=== PATIENT | female | born 1985 | race African-American/Black ===

== ENCOUNTER 2025-07-19 01:45 | Inpatient (IN) | payer OTHER ==
[~2025-07-19] VITALS: Ht 165.1 cm; Wt 94.8 kg
[2025-07-19] MEDS ORDERED: ONDANSETRON HCL/PF 4 MG/2 ML VIAL ONE (02:25)
[2025-07-19] MEDS ORDERED: MORPHINE SULFATE INJ 2 MG/ML DISP.SYRIN ONE ×2 (02:25→03:08)
[2025-07-19 02:37] LABS: PLATELET COUNT (AUTO) 329 K/uL (150-450); RED BLOOD CELL COUNT(AUTO) 4.19 MIL/uL (4.0-5.2); RED CELL DISTRIBUTION WIDTH 17.6 % (11.5-15.0); WHITE BLOOD COUNT (AUTO) 15.2 K/uL (4.3-11.0)
[2025-07-19] MEDS: IV NS 0.9% 1,000 ML BAG IV ONE ×2 (02:44→03:48)
[2025-07-19] MEDS: MORPHINE SULFATE INJ 2 MG/ML DISP.SYRIN IV ONE ×2 (02:44→03:12)
[2025-07-19] MEDS: ONDANSETRON HCL/PF 4 MG/2 ML VIAL IVP ONE (02:44)
[2025-07-19 02:45] LABS: CALCIUM, SERUM 9.0 mg/dL (8.5-10.1); CREATININE 0.7 mg/dL (0.6-1.3); SODIUM SERUM 145 mmol/L (136-145); UREA NITROGEN, BLOOD 14 mg/dL (7-18)
[2025-07-19 02:51] LABS: ASPARTATE AMINOTRANSFERASE 129 U/L (15-37); INR 1.04 (0.91-1.10); TOTAL PROTEIN, SERUM 6.9 g/dL (6.4-8.2)
[2025-07-19 03:07] LABS: PREGNANCY TEST URINE QUAL NEGATIVE (NEGATIVE)
[2025-07-19 03:09] LABS: APPEARANCE,URINE SLIGHTLY CLOUDY (CLEAR); BLOOD, URINE 2+ Ery/uL (NEGATIVE); LEUKOCYTE ESTERASE ,URINE TRACE (NEGATIVE); NITRITE, URINE NEGATIVE (NEGATIVE); UGLUCOSE NEGATIVE (NEGATIVE)
[2025-07-19 03:21] LABS: ADD URINE CULTURE YES; SQUAMOUS EPITHELIAL CELL,UR Many /HPF (None Seen)
[2025-07-19] MEDS ORDERED: KETOROLAC TROMETHAMINE INJ 30 MG/ML VIAL ONE (03:30)
[2025-07-19] MEDS: KETOROLAC TROMETHAMINE INJ 30 MG/ML VIAL IV ONE (03:31)
[2025-07-19] MEDS ORDERED: PIPERACI/TAZO 3.375GM/D5W 50ML PB IV ONE (03:32)
[2025-07-19] MEDS: PIPERACILLIN /TAZOBACTAM 3.375 G in IV D5W 50 ML IV ONE (03:48)
[2025-07-19] MEDS ORDERED: Z GUARD REMEDY 4 OZ OINT TP PRN (04:00)
[2025-07-19] MEDS ORDERED: FLUT1DIS IH (08:13)
[2025-07-19] MEDS ORDERED: ALBU8.5H8 IH (08:13)
[2025-07-19 08:50] VITALS: BP 127/80; TEMP 98.6; O2SAT 99
[2025-07-19] MEDS: PIPERACILLIN /TAZOBACTAM 3.375 G in IV D5W 100 ML IV SCH (10:00)
[2025-07-19] MEDS: ENOXAPARIN SODIUM 40 MG/0.4 ML DISP.SYRIN SQ SCH (10:14)
[2025-07-19] MEDS: PANTOPRAZOLE 40 MG VIAL IV SCH (10:14)
[2025-07-19] MEDS: IV D5/ 0.9% NACL 1,000 ML IV PRN (10:15)
[2025-07-19] MEDS: ONDANSETRON HCL/PF 4 MG/2 ML VIAL IVP PRN (10:23)
[2025-07-19] MEDS: MORPHINE SULFATE INJ 2 MG/ML DISP.SYRIN IV PRN (10:24)
[2025-07-19] MEDS ORDERED: PIPERACILLIN /TAZOBACTAM 3.375 G in IV D5W 50 ML IV SCH (13:00)
[2025-07-19 16:00] VITALS: BP 122/76; TEMP 98.3; O2SAT 95
[2025-07-19] MEDS ORDERED: PIPERACILLIN /TAZOBACTAM 3.375 G in IV D5W 100 ML IV SCH (16:30)
[2025-07-19] MEDS: LEVOFLOXACIN 750 MG /D5W 150ML 750 MG in PREMIX 1 EA IV SCH (17:15)
[2025-07-19] MEDS: METRONIDAZOLE 500MG/ NS 100ML 500 MG in PREMIX 1 EA IV SCH (18:21)
[2025-07-19 20:00] VITALS: BP 119/66; TEMP 98.4; O2SAT 96
[2025-07-19 21:30] VITALS: O2SAT 95
[2025-07-19 21:40] VITALS: O2SAT 99
[2025-07-19] MEDS: IPRATROPIUM NEB FS 0.5 MG/2.5 ML AMPUL.NEB NEB PRN (21:54)
[2025-07-19] MEDS: ALBUTEROL FS 2.5 MG/3 ML VIAL.NEB NEB PRN (21:54)
[2025-07-20] VITALS (10 sets, daily range): BP systolic 109–118; BP diastolic 69–72; TEMP 98.4–100; O2SAT 95–100
[2025-07-20 07:29] LABS: PLATELET COUNT (AUTO) 362 K/uL (150-450); RED BLOOD CELL COUNT(AUTO) 3.49 MIL/uL (4.0-5.2); RED CELL DISTRIBUTION WIDTH 17.4 % (11.5-15.0); WHITE BLOOD COUNT (AUTO) 10.4 K/uL (4.3-11.0)
[2025-07-20 08:24] LABS: ASPARTATE AMINOTRANSFERASE 35.0 U/L (15-37); CALCIUM, SERUM 7.4 mg/dL (8.5-10.1); CREATININE 0.7 mg/dL (0.6-1.3); PHOSPHORUS 3.8 mg/dL (2.5-4.9); SODIUM SERUM 146.0 mmol/L (136-145); TOTAL PROTEIN, SERUM 5.5 g/dL (6.4-8.2); UREA NITROGEN, BLOOD 10.0 mg/dL (7-18)
[2025-07-20] MEDS: Magnesium 1GM/D5W 100ML PREMIX 100 ML IV SCH (12:14)
[2025-07-20] MEDS ORDERED: FENTANYL PF 250MCG/5ML AMPUL ONE (13:56)
[2025-07-20] MEDS ORDERED: SUCCINYLCHOLINE CHLORIDE 20 MG/ML VIAL ONE (13:57)
[2025-07-20] MEDS ORDERED: ROCURONIUM BROMIDE 50 MG/5 ML ONE (13:57)
[2025-07-20] MEDS ORDERED: ALBUTEROL SULFATE 8 GM HFA.AER.AD ONE (14:08)
[2025-07-20] MEDS ORDERED: ALBUTEROL SULFATE 8 GM HFA.AER.AD IH ONE (14:14)
[2025-07-20] MEDS ORDERED: ALBUTEROL SULFATE 8 GM HFA.AER.AD IH PRN (15:30)
[2025-07-20] MEDS ORDERED: ANESTHESIA TRAY IN PYXIS 1 EA TRAY MC ONE (15:50)
[2025-07-20] MEDS: ZOLPIDEM TARTRATE 5 MG TABLET PO PRN (22:44)
[2025-07-20] MEDS: GUAIFENESIN/D-METHORPHAN HB 5 ML UDC PO PRN (23:03)
[2025-07-21] VITALS (10 sets, daily range): BP systolic 118–139; BP diastolic 65–87; TEMP 98.5–100.2; O2SAT 97–100
[2025-07-21 07:41] LABS: CALCIUM, SERUM 7.6 mg/dL (8.5-10.1); CREATININE 0.8 mg/dL (0.6-1.3); PHOSPHORUS 3.8 mg/dL (2.5-4.9); SODIUM SERUM 140.0 mmol/L (136-145); UREA NITROGEN, BLOOD 7.0 mg/dL (7-18)
[2025-07-21 07:43] LABS: PLATELET COUNT (AUTO) 360 K/uL (150-450); RED BLOOD CELL COUNT(AUTO) 3.56 MIL/uL (4.0-5.2); RED CELL DISTRIBUTION WIDTH 17.2 % (11.5-15.0); WHITE BLOOD COUNT (AUTO) 11.1 K/uL (4.3-11.0)
[2025-07-21 08:02] LABS: ASPARTATE AMINOTRANSFERASE 26.0 U/L (15-37); TOTAL PROTEIN, SERUM 5.9 g/dL (6.4-8.2)
[2025-07-21 10:21] LABS: ABG BASE EXCESS -2.1 mmol/L (-2.0-3.0); ABG OXYGEN SATURATION 95.8 % (94.0-98.0); ABG PCO2 38.8 mmHg (32.0-45.0); ABG PH 7.385 (7.350-7.450); ABG PO2 86.3 mmHg (83.0-108.0); ABG TOTAL HEMOGLOBIN 10.0 G/dL (12.0-16.0); FLOW, BLOOD GAS 2.00 L/min (0.00-30.00); FRACTIONATED INSPIRED OXYGEN 28.0 %; SITE, ABG RIGHT BRACHIAL
[2025-07-21] MEDS: HYDROMORPHONE 1 MG/1 ML DISP.SYRIN IV PRN (13:25)
[2025-07-21 19:05] LABS: ABG BASE EXCESS -1.2 mmol/L (-2.0-3.0); ABG OXYGEN SATURATION 99.3 % (94.0-98.0); ABG PCO2 40.4 mmHg (32.0-45.0); ABG PH 7.386 (7.350-7.450); ABG PO2 259.7 mmHg (83.0-108.0); ABG TOTAL HEMOGLOBIN 10.4 G/dL (12.0-16.0); FLOW, BLOOD GAS 10.00 L/min (0.00-30.00); FRACTIONATED INSPIRED OXYGEN 60.0 %; SITE, ABG LEFT RADIAL
[2025-07-21] MEDS: IV LR 1000 ML 1,000 ML BAG IV ONE (20:39)
[2025-07-22] VITALS (14 sets, daily range): BP systolic 117–125; BP diastolic 69–80; TEMP 98.2–99.2; O2SAT 95–100
[2025-07-22 08:41] LABS: PLATELET COUNT (AUTO) 358 K/uL (150-450); RED BLOOD CELL COUNT(AUTO) 3.39 MIL/uL (4.0-5.2); RED CELL DISTRIBUTION WIDTH 16.8 % (11.5-15.0); WHITE BLOOD COUNT (AUTO) 11.7 K/uL (4.3-11.0)
[2025-07-22 11:14] LABS: ASPARTATE AMINOTRANSFERASE 25.0 U/L (15-37); CALCIUM, SERUM 7.6 mg/dL (8.5-10.1); CREATININE 0.6 mg/dL (0.6-1.3); PHOSPHORUS 3.0 mg/dL (2.5-4.9); SODIUM SERUM 139.0 mmol/L (136-145); TOTAL PROTEIN, SERUM 5.7 g/dL (6.4-8.2); UREA NITROGEN, BLOOD 4.0 mg/dL (7-18)
[2025-07-23] VITALS (10 sets, daily range): BP systolic 125–129; BP diastolic 61–91; TEMP 98.6–99.3; O2SAT 96–100
[2025-07-23 07:06] LABS: PLATELET COUNT (AUTO) 354 K/uL (150-450); RED BLOOD CELL COUNT(AUTO) 3.58 MIL/uL (4.0-5.2); RED CELL DISTRIBUTION WIDTH 17.2 % (11.5-15.0); WHITE BLOOD COUNT (AUTO) 10.3 K/uL (4.3-11.0)
[2025-07-23 07:36] LABS: CALCIUM, SERUM 8.0 mg/dL (8.5-10.1); CREATININE 0.7 mg/dL (0.6-1.3); PHOSPHORUS 3.3 mg/dL (2.5-4.9); SODIUM SERUM 142.0 mmol/L (136-145); UREA NITROGEN, BLOOD 3.0 mg/dL (7-18)
[2025-07-23] MEDS: PANTOPRAZOLE 40 MG/PACK PACK PO SCH (09:47)
[2025-07-23] MEDS: METRONIDAZOLE 500 MG TABLET PO SCH (10:04)
[2025-07-23] MEDS: IV LR 1000 ML 1,000 ML IV ONE (15:29)
[2025-07-23] MEDS ORDERED: HYDROCODONE/APAP 5/325MG TABLET PO PRN (16:30)
[2025-07-23] MEDS: LEVOFLOXACIN (250MG) 250 MG TABLET PO SCH (16:57)
[2025-07-23] MEDS: HYDROMORPHONE 1 MG/1 ML DISP.SYRIN IV PRN (21:26)
[2025-07-24] VITALS (10 sets, daily range): BP systolic 116–132; BP diastolic 67–87; TEMP 98.5–99.1; O2SAT 96–100
[2025-07-24 07:01] LABS: PLATELET COUNT (AUTO) 387 K/uL (150-450); RED BLOOD CELL COUNT(AUTO) 3.48 MIL/uL (4.0-5.2); RED CELL DISTRIBUTION WIDTH 16.9 % (11.5-15.0); WHITE BLOOD COUNT (AUTO) 9.9 K/uL (4.3-11.0)
[2025-07-24 07:31] LABS: CALCIUM, SERUM 8.0 mg/dL (8.5-10.1); CREATININE 0.7 mg/dL (0.6-1.3); PHOSPHORUS 3.7 mg/dL (2.5-4.9); SODIUM SERUM 142.0 mmol/L (136-145); UREA NITROGEN, BLOOD 4.0 mg/dL (7-18)
[2025-07-24] MEDS: ACETAMINOPHEN 325 MG TABLET PO PRN (10:12)
[2025-07-24] MEDS ORDERED: BENZONATATE 100 MG CAPSULE PO PRN (19:00)
[2025-07-25] VITALS (13 sets, daily range): BP systolic 124–144; BP diastolic 70–78; TEMP 98.2–99; O2SAT 97–100
[2025-07-25] MEDS ORDERED: LEVO750T46 PO (09:57)
[2025-07-25] MEDS ORDERED: METR500T PO (09:57)
[2025-07-25] MEDS ORDERED: BENZ-13 PO (10:00)
[2025-07-25] MEDS ORDERED: IPRA0.2S9 IH (10:00)
[2025-07-25] MEDS ORDERED: ALBU2.5V38 IH (10:00)
[2025-07-25] MEDS: MOMETASONE/FORMOTEROL 8.8 GM HFA.AER.AD IH SCH (12:00)
[2025-07-25] MEDS ORDERED: TEMAZEPAM 15 MG CAPSULE PO PRN (23:30)
[2025-07-25] MEDS: TEMAZEPAM 15 MG CAPSULE PO PRN (23:42)
[2025-07-26] VITALS (10 sets, daily range): BP systolic 120–145; BP diastolic 75–87; TEMP 98–98.6; O2SAT 92–100
[2025-07-26] MEDS ORDERED: IPRATROPIUM NEB FS 0.5 MG/2.5 ML AMPUL.NEB NEB PRN (12:00)
[2025-07-26] MEDS ORDERED: FLUT1DIS IH (12:55)
[2025-07-26] MEDS: IPRATROPIUM NEB FS 0.5 MG/2.5 ML AMPUL.NEB NEB PRN (17:36)
== END 2025-07-27 00:13 | disposition home or self-care (01) ==
LOC: ER 01:53 → MS IN 05:45 → MEDSG1 07:54
PROVIDERS: ADMIT Nurse Practitioner Acute Care
DX: K80.00 Calculus of gallbladder with acute cholecystitis without obstruction (principal); K85.10 Biliary acute pancreatitis without necrosis or infection; J15.9 Unspecified bacterial pneumonia; J96.11 Chronic respiratory failure with hypoxia; N39.0 Urinary tract infection, site not specified; E66.9 Obesity, unspecified; G80.9 Cerebral palsy, unspecified; J45.909 Unspecified asthma, uncomplicated; D64.9 Anemia, unspecified; Z99.81 Dependence on supplemental oxygen; G90.A Postural orthostatic tachycardia syndrome [POTS]; Z68.35 Body mass index [BMI] 35.0-35.9, adult; G47.33 Obstructive sleep apnea (adult) (pediatric); Z87.01 Personal history of pneumonia (recurrent); Z53.09 Procedure and treatment not carried out because of other contraindication; Z88.0 Allergy status to penicillin; Z88.1 Allergy status to other antibiotic agents
CPT/HCPCS: 36415; 36600; 71045-TC; 71250-TC; 76705-TC; 80048-TC; 80053-TC; 80076-TC; 81001; 82803-TC; 83605-TC; 83690-TC; 83735-TC; 83880; 84100-TC; 84439-TC; 84443-TC; 84481; 84484-TC; 84703-TC; 85025-TC; 85730-TC; 86850-TC; 87040-TC; 87081-TC; 87086-TC; 93307-TC; 93970-TC; 94760-TC; 94762-TC; 94799-TC; 97116-TC; 97530-TC; 97535-TC; A4216; A4223; G0378; J0330; J1171; J1650; J1885; J1956; J2270; J2405; J2470; J2543; J2704; J3010; J3475; J3490; J7030; J7040; J7042; J7050; J7060; J7120